=== PATIENT | female | born 1965 | race African-American/Black ===

== ENCOUNTER 2018-07-29 11:14 | Emergency (ER) | payer OTHER ==
[~2018-07-29] VITALS: Ht 152.4 cm; Wt 95.5 kg
[~2018-07-29 11:14] MED LIST: CIPR500S3; IBUP100T36; LEVO100T; OXYC-102; TAMS0.4C31
[2018-07-29] MEDS ORDERED: DICL75TA5 MT (11:36)
[2018-07-29] MEDS ORDERED: HYDR12.529 MT (11:36)
[2018-07-29] MEDS ORDERED: KETOROLAC 30MG/ML VIAL IV STA (11:54)
[2018-07-29] MEDS ORDERED: SODIUM CHLORIDE 0.9% 1,000 ML IV ONE (11:54)
[2018-07-29] MEDS ORDERED: ONDANSETRON HCL 4MG/2ML INJ IV ONE (12:00)
[2018-07-29 12:23] LABS: CLARITY URINE CLEAR (CLEAR); COLOR URINE YELLOW (YELLOW); KETONES URINE NEGATIVE (NEGATIVE); LEUKOCYTE ESTERASE URINE 2+ (NEGATIVE); NITRITE URINE NEGATIVE (NEGATIVE); OCCULT BLOOD URINE 3+ (NEGATIVE); PROTEIN URINE TRACE (NEGATIVE); SPECIFIC GRAVITY URINE 1.021 (1.005-1.030); UROBILINOGEN URINE 0.2 E.U./dL (0.2-1.0)
[2018-07-29 13:04] LABS: BASOPHILS % 0.2 % (0.0-2.0); EOSINOPHILS % 0.4 % (0.0-5.0); HEMATOCRIT. 42.9 % (36.0-48.0); HEMOGLOBIN. 14.7 g/dL (12.0-16.0); MEAN CORPUSCULAR HEMOGLOBIN 29.2 pg (28.0-32.0); MEAN CORPUSCULAR VOLUME 85.2 fL (81.0-99.0); MEAN PLATELET VOLUME 8.3 fl (7.4-10.4); MONOCYTES % 4.6 % (2.0-8.0); NEUTROPHILS % 79.8 % (40.0-76.0); PLATELET 205 x1000/uL (130-400); RED BLOOD CELL COUNT 5.03 mill/uL (4.2-5.4); RED CELL DISTRIBUTION WIDTH 13.8 % (11.6-14.6)
[2018-07-29 13:10] LABS: CHLORIDE 106 mEq/L (98-107)
[2018-07-29] MEDS ORDERED: CEFTRIAXONE 1 G PREMIX 50 ML IV ONE (13:15)
[2018-07-29 15:01] VITALS: BP 138/71
== END 2018-07-29 15:07 | disposition home or self-care (01) ==
LOC: ER 11:14
DX: N39.0 Urinary tract infection, site not specified (principal); N20.0 Calculus of kidney; I10 Essential (primary) hypertension; E05.90 Thyrotoxicosis, unspecified without thyrotoxic crisis or storm; Z79.899 Other long term (current) drug therapy
CPT/HCPCS: 36415; 74176; 80053; 81003; 85025; 87086; 93005; 96361; 96365; 96375; 99284; J0696; J1885; J2405; J7030

== ENCOUNTER 2024-12-14 17:50 | Emergency (ER) | payer SELFPAY ==
[~2024-12-14] VITALS: Ht 165.1 cm; Wt 100.0 kg
[~2024-12-14 17:50] MED LIST changes: -CIPR500S3; +DICL75TA5 MT; +HYDR12.529 MT; +NAPR-1495 MT; -OXYC-102; +TAMS-54 MT; -TAMS0.4C31
[2024-12-14 17:52] VITALS: O2SAT 99
[2024-12-14 17:56] VITALS: BP 172/63; PULSE 86; RESP 16; TEMP 36.7; O2SAT 97
[2024-12-14 18:44] LABS: BASOPHILS % 0.5 % (0.0-2.0); EOSINOPHILS % 1.4 % (0.0-5.0); HEMATOCRIT. 42.5 % (36.0-48.0); HEMOGLOBIN. 14.4 g/dL (12.0-16.0); LYMPHOCYTES % 39.1 % (20.0-50.0); MEAN CORPUSCULAR HEMOGLOBIN 29.3 pg (28.0-32.0); MEAN CORPUSCULAR HGB CONC 33.9 g/dL (31.0-37.0); MEAN CORPUSCULAR VOLUME 86.5 fL (81.0-99.0); MONOCYTES % 4.9 % (2.0-8.0); NEUTROPHILS % 54.1 % (40.0-76.0); PLATELET 211 x1000/uL (130-400); RED BLOOD CELL COUNT 4.92 mill/uL (4.2-5.4); RED CELL DISTRIBUTION WIDTH 14.1 % (11.6-14.6)
[2024-12-14 18:54] LABS: CHLORIDE 106 mEq/L (98-107); POTASSIUM 3.5 mEq/L (3.5-5.1)
[2024-12-14 18:55] LABS: CARBON DIOXIDE 25 mEq/L (21-32); SODIUM 141 mEq/L (136-145)
[2024-12-14 18:56] LABS: CALCIUM 9.3 mg/dL (8.7-10.4)
[2024-12-14 19:01] LABS: CREATININE 0.8 mg/dL (0.6-1.0); GLUCOSE 200 mg/dL (70-105); UREA NITROGEN BLOOD 15 mg/dL (9-23)
[2024-12-14 19:05] LABS: TROPONIN I HIGH SENSITIVITY < 4 ng/L (3.0-34)
== END 2024-12-14 21:29 | disposition home or self-care (01) ==
LOC: ER 17:50
DX: R00.2 Palpitations (principal); I10 Essential (primary) hypertension; F41.9 Anxiety disorder, unspecified; Z79.899 Other long term (current) drug therapy; Z86.39 Personal history of other endocrine, nutritional and metabolic disease
CPT/HCPCS: 36415; 71045; 80048; 84484; 85025; 93005; 99285